=== PATIENT | male | born 1980 ===

== ENCOUNTER 2017-09-29 12:10 | Emergency (ER) | payer MEDICAID ==
[2017-09-29 12:17] VITALS: BP 144/95; PULSE 73; RESP 18; TEMP 98.6; O2SAT 98
[2017-09-29] MEDS ORDERED: Lidocaine 1%/Epinephrine 1:100000 30 ml vial IJ STA (12:30)
[2017-09-29] MEDS ORDERED: Tdap Vaccine 0.5 ml Vial (10-64 yrs) IM ONE (12:30)
--- NOTE | 2017-09-29 12:30 | C.PDOC ---
History Of Present Illness 37 y/o male patient comes into ER for an evaluation of laceration located on his left arm. Patient reports he lacerated his left arm on a broken window and denies retaining any shattered pieces of glass. Patient denies numbness, tingling, weakness. Last tetanus shot unknown. Time Seen by Provider: 09/29/17 12:27 Chief Complaint (Nursing): Abnormal Skin Integrity History Per: Patient History/Exam Limitations: no limitations Onset/Duration Of Symptoms: Hrs Current Symptoms Are (Timing): Still Present Location Of Injury: Left: Arm Quality Of Symptoms: Painful Past Medical History Reviewed: Historical Data, Nursing Documentation, Vital Signs Vital Signs: Last Vital Signs Temp 98.6 F 09/29/17 12:14 Pulse 73 09/29/17 12:14 Resp 18 09/29/17 12:14 BP 144/95 H 09/29/17 12:14 Pulse Ox 98 09/29/17 13:08 Surgical History: No Surg Hx Family History: States: Unknown Family Hx - Social History Hx Alcohol Use: Yes Hx Substance Use: No - Immunization History Hx Tetanus Toxoid Vaccination: No Hx Influenza Vaccination: No Hx Pneumococcal Vaccination: No Review Of Systems Constitutional: Negative for: Weakness Musculoskeletal: Positive for: Other (laceration to left upper extremity) Neurological: Negative for: Weakness, Numbness Physical Exam - Physical Exam Appears: Non-toxic, No Acute Distress Skin: Other (1.5 cm laceration to left upper extremity) Head: Atraumatic, Normacephalic Eye(s): bilateral: Normal Inspection Chest: Symmetrical Cardiovascular: Rhythm Regular Respiratory: Normal Breath Sounds Extremity: Normal ROM Neurological/Psych: Oriented x3 Gait: Steady ED Course And Treatment O2 Sat by Pulse Oximetry: 98 (RA) Pulse Ox Interpretation: Normal Progress Note: Patient was given tetanus booster. Laceration was repaired with sutures. See procedure notes. Procedure: Wound Repair - Time Out Time Out: Side verified, Site verified, Patient ID confirmed - Consent Obtained Consent obtained: Verbal - Performed by Performed by: Attending Physician - Indications Indication(s):: Laceration - Location Location:: Left, Arm Shape:: Linear Dimensions Length cm: 1.5 - Anesthetic Technique Anesthetic Technique: Local Local/Regional Anesthetic:: Lidocaine 1% - Debris Debris:: None - Complexity Complexity:: Simple (one layer) - Wound repair method Sutures:: # (5), Size (4:0), Type (nylon), Technique (simple interrupted) - Patient tolerated procedure Patient Tolerated Procedure:: Well Medical Decision Making Medical Decision Making: suspefical lac, wound examined, no retained glass, pt states whole piece came out. Disposition - Disposition Referrals: [facility] [Outside] [facility] [Outside] Disposition: HOME/ ROUTINE Disposition Time: 13:17 Condition: STABLE Additional Instructions: return to er with worsening symptoms or concerns . please see your doctor in 8- 10 days for removal, or return to er. return immediately with any worsening. Instructions: Laceration Repair With Stitches (DC) Forms: Pley ([place]) - Clinical Impression Clinical Impression: Laceration - Scribe Statement The provider has reviewed the documentation as recorded by the Imani Medinaed Provider Attestation: All medical record entries made by the Imani were at my direction and personally dictated by me. I have reviewed the chart and agree that the record accurately reflects my personal performance of the history, physical exam, medical decision making, and the department course for this patient. I have also personally directed, reviewed, and agree with the discharge instructions and disposition.
== END 2017-09-29 13:23 | disposition home or self-care (01) ==
LOC: C.ER 12:10
DX: S41.112A Laceration without foreign body of left upper arm, initial encounter (principal); W45.8XXA Other foreign body or object entering through skin, initial encounter